=== PATIENT | female | born 1995 | race Hispanic/Latino ===

== ENCOUNTER 2020-03-31 10:49 | Emergency (ER) | payer SELFPAY ==
[~2020-03-31] VITALS: Ht 170.2 cm; Wt 108.9 kg
[2020-03-31] MEDS ORDERED: SODIUM CHLORIDE 0.9% 1000ML 1,000 ML IV STA (11:12)
[2020-03-31] MEDS ORDERED: KETOROLAC TROMETHAMINE 30 MG/ML VIAL IV STA (11:12)
[2020-03-31 11:37] LABS: BASOPHILS # (AUTO) 0.1 (0.0-0.1); BASOPHILS % 0.7 % (0.0-1.0); EOSINOPHILS # (AUTO) 0.1 (0.0-0.4); EOSINOPHILS % 0.8 % (0.0-6.0); HEMATOCRIT 42.2 % (34.2-44.1); HEMOGLOBIN 13.5 g/dL (12.0-16.0); LYMPHOCYTES # (AUTO) 1.9 (1.0-3.2); LYMPHOCYTES % 25.4 % (18.0-39.1); MEAN CORPUSCULAR HEMOGLOBIN 28.2 pg (28-32); MEAN CORPUSCULAR VOLUME 88.1 fL (81-99); MONOCYTES # (AUTO) 0.4 (0.2-0.8); MONOCYTES % 4.8 % (4.4-11.3); NEUTROPHILS # (AUTO) 5.2 (2.1-6.9); NEUTROPHILS % 67.9 % (38.7-80.0); PLATELET COUNT 356 x10e3/uL (140-360); RED BLOOD COUNT 4.79 x10e6/uL (3.6-5.1); RED CELL DISTRIBUTION WIDTH 12.8 % (11.7-14.4)
[2020-03-31 11:41] LABS: COLOR,URINE YELLOW (YELLOW)
[2020-03-31 11:42] LABS: CLARITY,URINE CLEAR (CLEAR); LEUKOCYTE ESTERASE ,URINE NEGATIVE (NEGATIVE); NITRITE,URINE NEGATIVE (NEGATIVE); PROTEIN,URINE DIPSTICK NEGATIVE (NEGATIVE)
[2020-03-31 11:43] LABS: KETONES,URINE NEGATIVE (NEGATIVE); PREGNANCY TEST, URINE NEGATIVE (NEGATIVE); URINE UROBILINOGEN 0.2 mg/dL (0.2 - 1)
[2020-03-31 11:50] LABS: BACTERIA,URINE FEW /HPF; EPITHELIAL CELLS,URINE FEW /LPF; RBC,URINE 0-5 /HPF (0-5); WBC,URINE (MAN) 0-5 /HPF (0-5)
[2020-03-31 11:56] LABS: ALANINE AMINOTRANSFERASE 11 IU/L (0-55); ALBUMIN 4.1 g/dL (3.5-5.0); ALBUMIN/GLOBULIN RATIO 1.3 (0.8-2.0); ALKALINE PHOSPHATASE 56 IU/L (40-150); ANION GAP 12.7 mmol/L (8-16); BLOOD UREA NITROGEN 8 mg/dL (7-26); BUN/CREATININE RATIO 11 (6-25); CALCIUM 9.2 mg/dL (8.4-10.2); CARBON DIOXIDE 26 mmol/L (22-29); CHLORIDE 104 mmol/L (98-107); EST GLOMERULAR FILTRATION RATE > 60 ML/MIN (60-); GLUCOSE 93 mg/dL (74-118); POTASSIUM 3.7 mmol/L (3.5-5.1); SODIUM 139 mmol/L (136-145)
[2020-03-31] MEDS ORDERED: IOPAMIDOL 370 MG/ML 200 ML INFUS..BTL INJ ONE (12:40)
[2020-03-31] MEDS ORDERED: SODIUM CHLORIDE 0.9% 50ML 50 ML ONE (12:40)
[2020-03-31] MEDS ORDERED: ZOFRAN4 MG SL (13:10)
[2020-03-31] MEDS ORDERED: TYLENOL # 31 EA PO (13:10)
[2020-03-31 13:46] VITALS: BP 116/72
== END 2020-03-31 13:49 | disposition home or self-care (01) ==
LOC: ER 11:23
DX: R10.32 Left lower quadrant pain (principal)
CPT/HCPCS: 36415; 74177; 80053; 81001; 81025; 85025; 99284; J1885; J7030; Q9967

== ENCOUNTER 2020-04-26 07:15 | Emergency (ER) | payer SELFPAY ==
[~2020-04-26] VITALS: Ht 170.2 cm; Wt 108.9 kg
[~2020-04-26 07:15] MED LIST: TYLENOL # 31 EA PO; ZOFRAN4 MG SL
[2020-04-26] MEDS ORDERED: PENICILLIN G BENZATHINE LA 1.2 MU TBX IM STA (07:20)
[2020-04-26] MEDS ORDERED: ZOFRAN4 MG SL (07:23)
[2020-04-26] MEDS ORDERED: DEXAMETHASONE SOD PHOS 10 MG/1 ML VIAL IV ONE (07:30)
[2020-04-26] MEDS ORDERED: ONDANSETRON HCL 4 MG ORAL DISINTEGRATING TAB PO ONE (07:30)
== END 2020-04-26 07:35 | disposition home or self-care (01) ==
LOC: ER 07:23
DX: J02.0 Streptococcal pharyngitis (principal)
CPT/HCPCS: 99282; J0561; J1100; Q0162

== ENCOUNTER 2020-06-27 19:12 | Emergency (ER) | payer SELFPAY ==
[~2020-06-27] VITALS: Ht 170.2 cm; Wt 108.9 kg
== END 2020-06-27 20:55 | disposition home or self-care (01) ==
LOC: ER 20:22
DX: R10.33 Periumbilical pain (principal); R53.1 Weakness; R19.7 Diarrhea, unspecified
CPT/HCPCS: 93005; 99282